=== PATIENT | male | born 1995 | race Caucasian/White ===

== ENCOUNTER 2016-02-23 13:51 | Emergency (ER) | payer BC ==
[~2016-02-23] VITALS: Ht 193 cm; Wt 142.9 kg
[2016-02-23] MEDS ORDERED: WELLBUTRIN SR150 MG PO (14:25)
[2016-02-23] MEDS ORDERED: LEVOTHYROXINE 0.15MG PO (14:26)
[2016-02-23] MEDS ORDERED: ANUSOL-HC25 MG RECTAL (14:28)
[2016-02-23] MEDS ORDERED: ANDRODERM1 EAC2 INJECTION (14:29)
[2016-02-23 14:41] LABS: HEMATOCRIT 47.3 % (42.0-52.0); HEMOGLOBIN 16.1 gm/dL (14.0-18.0); MCH 29.2 pg (26.0-34.0); MCHC 34.1 % (28.0-37.0); MCV 85.5 fL (80.0-100.0); PLATELET COUNT 215 thou/uL (150-400); RBC 5.53 mil/uL (4.50-6.00); RDW 13.8 % (10.5-14.5); WBC 6.7 thou/uL (4.0-11.0)
[2016-02-23 14:42] LABS: MANUAL DIFF YES
[2016-02-23 14:51] LABS: CALCIUM 8.8 mg/dL (8.5-10.1); CREATININE 1.1 mg/dL (0.6-1.3); POTASSIUM 3.8 mmol/L (3.5-5.1)
[2016-02-23 14:57] LABS: ALBUMIN 4.1 g/dL (3.4-5.0); TOTAL BILIRUBIN 1.1 mg/dL (<0.1-1.0); TOTAL PROTEIN 7.8 g/dL (6.4-8.2)
[2016-02-23 15:07] LABS: ABSOLUTE NEUTROPHILS 5.4 thou/uL (1.4-8.2); TOTAL CELL COUNT 100
[2016-02-23 15:08] LABS: ANISOCYTOSIS SLIGHT
[2016-02-23] MEDS ORDERED: VENTOLIN HFA 1818 GM INH (15:17)
[2016-02-23] MEDS ORDERED: ONDANSETRON HCL4 M2 PO (15:17)
[2016-02-23] MEDS ORDERED: TESSALON PERLE100 MG PO (15:17)
[2016-02-23 15:32] VITALS: BP 134/78
== END 2016-02-23 15:35 | disposition home or self-care (01) ==
LOC: ER 13:51
PROVIDERS: Emergency Medicine
DX: J20.8 Acute bronchitis due to other specified organisms (principal)